=== PATIENT | female | born 1970 | race Two or more races ===

== ENCOUNTER 2023-07-09 15:51 | Emergency (ER) | payer MEDICAID ==
[~2023-07-09] VITALS: Ht 167.6 cm; Wt 95.3 kg
[2023-07-09] MEDS ORDERED: ADENOSINE 6 MG/2 ML VIAL ONE (15:55)
[2023-07-09] MEDS ORDERED: ONDANSETRON HCL/PF 4 MG/2 ML VIAL ONE (16:04)
[2023-07-09] MEDS: IV NS 0.9% 1,000 ML BAG IV ONE (16:06)
[2023-07-09] MEDS: ADENOSINE 6 MG/2 ML VIAL IVP ONE (16:07)
[2023-07-09] MEDS: ONDANSETRON HCL/PF 4 MG/2 ML VIAL IV ONE (16:22)
[2023-07-09 16:27] LABS: BASOPHILS # (AUTO) 0.1 K/uL (0.0-0.2); BASOPHILS % (AUTO) 0.4 % (0.0-2.0); EOSINOPHILS # (AUTO) 0.1 K/uL (0.0-0.7); EOSINOPHILS % (AUTO) 0.4 % (0.0-6.0); HEMATOCRIT 44 % (33-45); HEMOGLOBIN 14.2 g/dL (11.5-14.8); LYMPHOCYTES # (AUTO) 2.2 K/uL (0.8-4.8); LYMPHOCYTES % (AUTO) 17.3 % (20.0-44.0); MEAN CORPUSCULAR HEMOGLOBIN 28 PG (26.0-33.0); MEAN CORPUSCULAR HGB CONC 32 g/dl (31.0-36.0); MEAN CORPUSCULAR VOLUME 88 fL (82-100); MONOCYTES # (AUTO) 0.5 K/uL (0.1-1.30); MONOCYTES % (AUTO) 3.9 % (2.0-12.0); NEUTROPHILS # (AUTO) 10.1 K/uL (1.8-8.9); PLATELET COUNT (AUTO) 360 K/uL (150-450); RED BLOOD CELL COUNT(AUTO) 5.06 MIL/uL (4.0-5.2); RED CELL DISTRIBUTION WIDTH 14.9 % (11.5-15.0); WHITE BLOOD COUNT (AUTO) 12.9 K/uL (4.3-11.0)
[2023-07-09 16:29] LABS: CALCIUM, SERUM 9.2 mg/dL (8.5-10.1); CREATININE 1.5 mg/dL (0.6-1.3); POTASSIUM 3.9 mmol/L (3.5-5.1)
[2023-07-09 16:50] LABS: THYROID STIMULATING HORMONE 0.089 uIU/mL (0.358-3.74)
[2023-07-09 17:35] VITALS: BP 118/76; TEMP 98.3; O2SAT 98
== END 2023-07-09 17:36 | disposition home or self-care (01) ==
LOC: ER 15:53
DX: I47.19 Other supraventricular tachycardia (principal)
CPT/HCPCS: 99284; 96374; 96361; 96375; 93005; 85025; 80048; 83735; 36415; 84439; 84443; J0153; J2405; J7030